=== PATIENT | male | born 1940 | race Caucasian/White ===

== ENCOUNTER → 2017-06-23 | Outpatient (REF) | payer MEDICARE ==
[2017-06-23 13:10] LABS: BASO # 0.1 10^3/uL (0.0-0.2); BASO % 0.8 % (0.0-1.0); EOS # 0.1 10^3/uL (0.0-0.50); EOS % 1.1 % (0.0-3.0); HEMATOCRIT 49.3 % (42.0-52.0); HEMOGLOBIN 17.5 g/dl (13.5-17.5); IMMATURE GRANULOCYTE % 0.1 % (0-3.0); LYMPH # 2.7 10^3/uL (1.5-4.5); LYMPH % 38.5 % (24.0-44.0); MEAN CORPUSCULAR HEMOGLOBIN 32.6 pg (27.0-33.0); MEAN CORPUSCULAR HGB CONC 35.5 g/dl (32.0-36.5); MEAN CORPUSCULAR VOLUME 91.8 fl (80.0-96.0); MONO # 0.8 10^3/uL (0.0-0.8); MONO % 11.5 % (0.0-5.0); NEUTROPHILS # 3.4 10^3/uL (1.8-7.7); PLATELET COUNT, AUTOMATED 245 10^3/uL (150-450); RED BLOOD COUNT 5.37 10^6/uL (4.30-6.10); RED CELL DISTRIBUTION WIDTH 12.1 % (11.5-14.5); WHITE BLOOD COUNT 7.1 10^3/uL (4.0-10.0)
[2017-06-23 13:40] LABS: TOTAL 25(OH) VITAMIN D 22.6 NG/ML (30.0-100.0); VITAMIN B12 LEVEL 350 PG/ML
[2017-06-23 13:41] LABS: FOLATE 17.9 NG/ML
[2017-06-23 13:59] LABS: ALBUMIN 4.1 GM/DL (3.2-5.2); ALBUMIN/GLOBULIN RATIO 1.24 (1.00-1.93); ALKALINE PHOSPHATASE 107 U/L (45-117); ALT/SGPT 104 U/L (12-78); ANION GAP 8 MEQ/L (8-16); AST/SGOT 80 U/L (7-37); BILIRUBIN,TOTAL 0.6 MG/DL (0.2-1.0); BLOOD UREA NITROGEN 17 MG/DL (7-18); CARBON DIOXIDE LEVEL 26 MEQ/L (21-32); CHLORIDE LEVEL 105 MEQ/L (98-107); CREATININE FOR GFR 0.85 MG/DL (0.70-1.30); FREE T4 0.71 NG/DL (0.76-1.46); GLOMERULAR FILTRATION RATE > 60.0 (>42); GLUCOSE, FASTING 166 MG/DL (70-100); POTASSIUM SERUM 3.8 MEQ/L (3.5-5.1); SODIUM LEVEL 139 MEQ/L (136-145); TOTAL PROTEIN 7.4 GM/DL (6.4-8.2)
[2017-06-25 14:16] LABS: OXCARBAZEPINE 22 ug/mL (10-35)
== END ==
LOC: M LABNEURO 10:49
DX: G40.209 Localization-related (focal) (partial) symptomatic epilepsy and epileptic syndromes with complex partial seizures, not intractable, without status epilepticus (principal); D33.0 Benign neoplasm of brain, supratentorial; Z79.899 Other long term (current) drug therapy
CPT/HCPCS: 82746

== ENCOUNTER → 2017-08-03 | Outpatient (REF) | payer MEDICARE ==
[2017-08-03 18:36] LABS: AMORPHOUS SEDIMENT LARGE (NEGATIVE); APPEARANCE, URINE TURBID (CLEAR); BACTERIA, URINE AUTO NEGATIVE (NEGATIVE); BILIRUBIN, URINE AUTO NEGATIVE (NEGATIVE); BLOOD, URINE BLOOD NEGATIVE (NEGATIVE); COLOR, URINE YELLOW (YELLOW); GLUCOSE, URINE (UA) AUTO 1+ mg/dL (NEGATIVE); KETONE, URINE AUTO NEGATIVE (NEGATIVE); LEUKOCYTE ESTERASE, URINE AUTO 1+ (NEGATIVE); MUCUS, URINE SMALL (NEGATIVE); NITRITE, URINE AUTO NEGATIVE (NEGATIVE); PROTEIN, URINE AUTO NEGATIVE (NEGATIVE); RBC, URINE AUTO 0 /HPF (0-3); SPECIFIC GRAVITY URINE AUTO 1.027 (1.002-1.035); SQUAMOUS EPITHELIAL CELL UR AU 0 /HPF (0-6); UROBILINOGEN, URINE AUTO 0.2 mg/dL (0.0-2.0); WBC, URINE AUTO 0 /HPF (0-3)
== END ==
LOC: M SMT 16:57
DX: R97.20 Elevated prostate specific antigen [PSA] (principal); R39.15 Urgency of urination; R39.12 Poor urinary stream
CPT/HCPCS: 81001

== ENCOUNTER → 2017-08-20 | Outpatient (CLI) | payer MEDICARE | LOC: M SMT PRO 08:15 | DX: C61 Malignant neoplasm of prostate (principal) | CPT/HCPCS: G0416 ==

== ENCOUNTER → 2018-10-11 | Outpatient (CLI) | payer MEDICARE, OTHER ==
[~2018-10-11] MED LIST: BACT800T5 PO; DOCU100C16 PO; DONETAB6 PO; FLOM0.4C39 PO; LOVA20TA2 PO; METF500T13 PO; MULTCAP PO; NEUR100C PO; OMEP10CASR PO; OXCA300T14 PO; PERCOCET PO; SULF500T2 PO
--- NOTE | 2018-10-11 12:47 | REP ---
TRANSRECTAL PROSTATE ULTRASOUND WITH ULTRASOUND GUIDANCE FOR PROSTATE BIOPSY: Transrectal ultrasound of the prostate is performed. Prostate measures 3.4 x 4.8 x 2.7 cm for a total volume of 23.0 mL. Ultrasound guidance was provided for Dr. Scherer who performed ultrasound guided biopsy of the prostate. Electronically Signed by Michi Green MD 10/11/2018 04:49 P
== END ==
LOC: M SMT PRO 09:47 → MERGE 09:47
PROVIDERS: ATTEND Urology
DX: C61 Malignant neoplasm of prostate (principal)
CPT/HCPCS: 76942; G0416

== ENCOUNTER 2018-11-29 10:49 | Inpatient (IN) | payer MEDICARE ==
[~2018-11-29] VITALS: Ht 170.2 cm; Wt 88.0 kg
[2018-11-29] MEDS: NS 1,000 ML IV SCH ×2 (01:30→17:50)
[~2018-11-29 10:49] MED LIST changes: -BACT800T5 PO; +BUPIVACAINE HCL 0.25% 30 ML VIAL As Ordered ONE; -DOCU100C16 PO; +LIDOCAINE 1% SDV INJ 30 ML VIAL As Ordered ONE; +LR 1,000 ML IV ONE; -PERCOCET PO; +ceFAZolin SOD 2 GM in IV 1 EA IV ONE
[2018-11-29] MEDS ORDERED: HEPARIN SOD (PORCINE) 5000 UNITS/ML VIAL SQ ONE (11:45)
[2018-11-29] MEDS ORDERED: DEXTROSE 50% 50 ML SYRINGE IV PRN (12:30)
[2018-11-29] MEDS ORDERED: MORPHINE 4 MG/ML 1ML VIAL/SYRINGE (J2270) IV PRN (12:30)
[2018-11-29] MEDS ORDERED: GLUCAGON FOR INJ 1 MG VIAL (J1610) SC PRN (12:30)
[2018-11-29] MEDS ORDERED: GLUCOSE 4 GM CHEW TABLET PO PRN (12:30)
[2018-11-29] MEDS ORDERED: ONDANSETRON 4MG/2ML VIAL (J2405) IV PRN ×2 (12:30→17:45)
[2018-11-29] MEDS ORDERED: ACETAMINOPHEN TAB 650MG DOSE (2X325MG) PO PRN (12:30)
[2018-11-29] MEDS ORDERED: PERCOCET 5MG/325MG TAB PO PRN ×2 (12:30→17:45)
[2018-11-29] MEDS ORDERED: PROPOFOL 200 MG/20 ML VIAL As Ordered ONE (12:44)
[2018-11-29] MEDS ORDERED: ePHEDrine SULFATE 25 MG/5 ML(5MG/ML) SYRINGE As Ordered ONE (12:44)
[2018-11-29] MEDS ORDERED: ROCURONIUM BROMIDE 50 MG/5 ML VIAL As Ordered ONE ×2 (12:44→15:59)
[2018-11-29] MEDS ORDERED: SUGAMMADEX SODIUM 500 MG/5 ML VIAL (BRIDION) As Ordered ONE (12:44)
[2018-11-29] MEDS ORDERED: LIDOCAINE 2% INJ 100 MG/5 ML SDV (FOR ANES.) As Ordered ONE (12:44)
[2018-11-29] MEDS ORDERED: METOCLOPRAMIDE INJ 10MG/2ML VIAL (J2765) As Ordered ONE (12:44)
[2018-11-29] MEDS ORDERED: dexameTHASONE 4 MG/ML 1ML VIAL (J1100) As Ordered ONE (12:44)
[2018-11-29] MEDS ORDERED: ONDANSETRON 4MG/2ML VIAL (J2405) As Ordered ONE (12:44)
[2018-11-29] MEDS ORDERED: fentaNYL 250 MCG/5 ML INJECTION (J3010) As Ordered ONE (12:44)
[2018-11-29] MEDS ORDERED: HYDROmorphone HCL 2 MG/ML 1ML VIAL (J1170) As Ordered ONE (12:44)
[2018-11-29] MEDS ORDERED: MIDAZOLAM INJ 2 MG/2 ML VIAL (J2250) As Ordered ONE (12:44)
[2018-11-29] MEDS ORDERED: LABETALOL HCL 100 MG/20 ML VIAL As Ordered ONE (12:54)
[2018-11-29] MEDS ORDERED: ACETAMINOPHEN 1000MG 100ML IV BTL (OFIRMEV) (J0131 PER 10MG) As Ordered ONE (12:56)
[2018-11-29] MEDS ORDERED: PHENYLephrine HCL 500 MCG/5 ML (100MCG/ML) SYRINGE (J2370) As Ordered ONE (15:15)
[2018-11-29] MEDS ORDERED: DESFLURANE 240 ML INHALANT As Ordered ONE ×2 (15:33→16:18)
[2018-11-29] MEDS: HumaLOG INSULIN (NovoLOG) PER UNIT SC SCH ×2 (17:30→21:00)
[2018-11-29 17:35] LABS: HEMATOCRIT 50.5 % (42.0-52.0); HEMOGLOBIN 17.3 g/dl (13.5-17.5); MEAN CORPUSCULAR HEMOGLOBIN 32.6 pg (27.0-33.0); MEAN CORPUSCULAR HGB CONC 34.3 g/dl (32.0-36.5); MEAN CORPUSCULAR VOLUME 95.3 fl (80.0-96.0); PLATELET COUNT, AUTOMATED 232 10^3/uL (150-450); WHITE BLOOD COUNT 11.7 10^3/uL (4.0-10.0)
--- NOTE | 2018-11-29 17:36 | ROOPDOC ---
[facility] Report Of Operation Report of Operation DATE OF PROCEDURE: 11/29/18 PREPROCEDURE DIAGNOSES: Prostate Cancer. POSTPROCEDURE DIAGNOSES: Prostate Cancer. PROCEDURE: Robotic-assisted Laparoscopic Radical Prostatectomy with Bilateral Pelvic Lymph Node Dissection. SURGEON: Gamaliel Erwin MD PARACHUTE MENDER: Brenda Lopez NP ANESTHESIA: General. OPERATIVE INDICATIONS: This is a 78 year old male with clinical T1c Colin 3+4 prostate cancer, here today for treatment. DESCRIPTION OF PROCEDURE: The patient was brought to the operating room and general anesthesia was induced. Prophylactic antibiotics were infused. He was then placed in the supine position and prepped and draped in the usual sterile fashion. At this point, a Caal catheter was inserted into the bladder and the balloon was filled with 10 mL of sterile water. We then made a midline incision just above the umbilicus for an 8 mm port. A Veress needle was utilized to achieve pneumoperitoneum. Next, an 8 mm port was inserted into the incision and subsequently a camera was inserted. There were no injuries from the Veress needle or initial trocar placement. Then three robotic ports were placed in the usual configuration in line just below the level of the umbilicus. A 12 mm human services assistant port was inserted lateral to the camera port. Once all the ports were placed, the robot was docked. Additional lysis of adhesions between the sigmoid colon and abdominal wall was then performed. The bladder was then released from the anterior abdominal wall using electrocautery. When the bladder was dropped the reservoir for the patient's previously placed inflatable penile prosthesis was seen on the right anterior abdominal wall. During the procedure, we made sure not to cauterize on or puncture the reservoir. Once the bladder was dropped, the fat overlying the prostate was cleared using electrocautery. The superficial dorsal vein was controlled with electrocautery. The endopelvic fascia was opened on both sides and the dorsal venous complex was cleared. Next, a #0 Vicryl [id number] stitch was placed around the dorsal venous complex. Once that was done, the bladder was opened and dissected away from the prostate. At this point, the prostate was lifted up. The vasa deferentia were identified in the midline. They were controlled with electrocautery and then transected. The seminal vesicles were also dissected bilaterally. At this point I ligated and transected bilateral prostatic pedicles using the Harmonic scalpel. The pedicles were carried towards the apex. After taking care of the pedicles the dorsal venous complex was transected with electrocautery. The urethra was transected. The prostate was then mobilized off the rectum using cold scissors. At this point, we checked for hemostasis and it appeared very good. Next, we performed bilateral pelvic lymph node dissection. This was done in a standard fashion. The limits of dissection were the iliac vein proximally, the obturator nerve distally, the pelvic sidewall laterally, and the bladder medially. All lymphatic tissue within these limits was removed. I performed the same procedure on both the right and left sides. Hemostasis was then obtained with a combination of bipolar electrocautery and Weck clips. The lymphatic packets were then placed in separate Endo Catch bags for future retrieval. Once hemostasis was confirmed, I then moved on to perform the vesicourethral anastomosis. The vesicourethral anastomosis was performed in running fashion using a Quill stitch. Once this was done, the final #20-Brazilian Caal catheter was placed. The balloon was filled with 15 mL of sterile water. Upon completion of the vesicourethral anastomosis, it was tested by filling the bladder with sterile water. The anastomosis appeared to be watertight. At this point, the prostate and seminal vesicles were placed in an Endo Catch bag for future retrieval. A Vince-Gramajo drain was brought in through the left robotic port skin site and the drain was positioned anterior to the bladder. The robot was then undocked. A Albino-Jordan fascial closure device was utilized to place a #0 Vicryl suture through the fascia of the 12 mm human services assistant port. The drain was secured to the skin with #2-0 Ethilon suture. The prostate, as well as the lymphatic packets were then extracted from the camera port site after the skin was extended. The fascia in this incision was then closed with a running #0 Vicryl stitch. Next, all the remaining ports were removed and there did not appear to be any bleeding from any of the port sites. The previously placed #0 Vicryl free ties through the human services assistant port were then tied down and all incisions were irrigated. Last, all of the incisions were closed with running subcuticular #4-0 Monocryl sutures. Local anesthesia was applied. Dermabond was then applied to the incisions. This marked the conclusion of the procedure. The patient was then awakened from anesthesia and transported to the recovery room in stable condition. ESTIMATED BLOOD LOSS: 175 mL. COMPLICATIONS: None. SPECIMENS: Prostate and seminal vesicles, right pelvic lymph nodes, left pelvic lymph nodes. PLAN: The patient will be admitted to the hospital postoperatively, and he will likely be discharged home within the next 1-2 days. GAMALIEL ERWIN MD Nov 29, 2018 17:36
[2018-11-29] MEDS ORDERED: LR 1,000 ML IV SCH (17:45)
[2018-11-29] MEDS: fentaNYL 100 MCG/2 ML INJECTION (J3010) IV PRN ×4 (17:57→18:18)
[2018-11-29 18:01] LABS: BLOOD UREA NITROGEN 12 MG/DL (7-18); CALCIUM LEVEL 8.3 MG/DL (8.8-10.2); CARBON DIOXIDE LEVEL 28 MEQ/L (21-32); CHLORIDE LEVEL 104 MEQ/L (98-107); CREATININE FOR GFR 1.18 MG/DL (0.70-1.30); GLOMERULAR FILTRATION RATE > 60.0 (>42); GLUCOSE, FASTING 184 MG/DL (70-100); POTASSIUM SERUM 4.1 MEQ/L (3.5-5.1); SODIUM LEVEL 139 MEQ/L (136-145)
[2018-11-29] MEDS: DONEPEZIL 5 MG TAB PO SCH (18:53)
[2018-11-29 18:54] VITALS: BP 144/88
[2018-11-29 19:35] VITALS: BP 141/88
[2018-11-29 20:30] VITALS: BP 124/79
[2018-11-29] MEDS: ceFAZolin SOD 1 GM in D5W MINI-BAG PLUS 50 ML IV SCH (20:39)
[2018-11-29] MEDS: sulfaSALAzine 500 MG TABEC PO SCH (20:40)
[2018-11-29] MEDS: OXcarbazepine 300 MG TAB PO SCH (20:40)
[2018-11-29] MEDS: DOCUSATE SODIUM 100 MG CAP PO SCH (20:40)
[2018-11-29] MEDS: HEPARIN SOD (PORCINE) 5000 UNITS/ML VIAL SC SCH (20:41)
[2018-11-29 21:35] VITALS: BP 128/80
[2018-11-29 22:30] VITALS: BP 126/78
[2018-11-29 23:20] VITALS: BP 122/70
[2018-11-30 00:30] VITALS: BP 144/74
[2018-11-30] MEDS: NS 1,000 ML IV SCH (03:54)
[2018-11-30] MEDS: ceFAZolin SOD 1 GM in D5W MINI-BAG PLUS 50 ML IV SCH (03:54)
[2018-11-30] MEDS: HEPARIN SOD (PORCINE) 5000 UNITS/ML VIAL SC SCH ×3 (05:32→20:59)
[2018-11-30 06:00] VITALS: BP 145/83
[2018-11-30 06:17] LABS: HEMATOCRIT 45.7 % (42.0-52.0); HEMOGLOBIN 15.5 g/dl (13.5-17.5); MEAN CORPUSCULAR HEMOGLOBIN 32.6 pg (27.0-33.0); MEAN CORPUSCULAR HGB CONC 33.9 g/dl (32.0-36.5); PLATELET COUNT, AUTOMATED 216 10^3/uL (150-450); RED BLOOD COUNT 4.76 10^6/uL (4.30-6.10); WHITE BLOOD COUNT 9.3 10^3/uL (4.0-10.0)
[2018-11-30 06:41] LABS: BLOOD UREA NITROGEN 10 MG/DL (7-18); CALCIUM LEVEL 8.2 MG/DL (8.8-10.2); CARBON DIOXIDE LEVEL 32 MEQ/L (21-32); CHLORIDE LEVEL 104 MEQ/L (98-107); CREATININE FOR GFR 0.93 MG/DL (0.70-1.30); GLOMERULAR FILTRATION RATE > 60.0 (>42); GLUCOSE, FASTING 118 MG/DL (70-100); POTASSIUM SERUM 4.6 MEQ/L (3.5-5.1); SODIUM LEVEL 139 MEQ/L (136-145)
[2018-11-30] MEDS: HumaLOG INSULIN (NovoLOG) PER UNIT SC SCH ×4 (08:05→21:00)
[2018-11-30] MEDS: DONEPEZIL 5 MG TAB PO SCH (08:06)
[2018-11-30] MEDS: sulfaSALAzine 500 MG TABEC PO SCH ×2 (08:06→20:59)
[2018-11-30] MEDS: GABAPENTIN 100 MG CAP PO SCH (08:07)
[2018-11-30] MEDS: DOCUSATE SODIUM 100 MG CAP PO SCH ×2 (08:07→20:59)
[2018-11-30] MEDS: OXcarbazepine 300 MG TAB PO SCH ×2 (08:07→20:59)
[2018-11-30] MEDS: OMEPRAZOLE 20 MG CAP PO SCH (08:07)
--- NOTE | 2018-11-30 09:02 | IPNPDOC ---
Subjective Review oF Systems Chief Complaint The patient is a 78-year-old male admitted with a reason for visit of Prostate Cancer. Events since Last Encounter No acute events o/n. Good pain control. No n/v. No f/c/ns. Objective Physical Examination General Exam: Alert, Cooperative ABDOMEN EXAM: Soft, Tenderness (mild), Other (incisions clean/dry/intact; TEN w/ serosanguinous output) Skin Exam: Nl turgor and temperature Neuro Exam: Normal Speech Psych Exam: Mental status NL, Mood NL Other physical findings catheter draining light pink urine Vital Signs/I&O Vital Signs Date Time Temp Pulse Resp B/P (MAP) Pulse Ox O2 Delivery O2 Flow Rate FiO2 11/30/18 06:00 97.2 72 20 145/83 (103) 96 Nasal Cannula 2.0 I&O- Last 24 Hours up to 6 AM 11/30/18 05:59 Intake Total 3755 ml Output Total 1070 ml Balance 2685 ml Laboratory Data Labs 24H Laboratory Tests 2 11/29/18 11:31: Bedside Glucose (Misc Panel) 126H 11/29/18 17:21: Nucleated Red Blood Cells % (auto) 0.0, Anion Gap 7L, Glomerular Filtration Rate > 60.0, Calcium Level 8.3L 11/29/18 20:49: Bedside Glucose (Misc Panel) 198H 11/30/18 05:27: Nucleated Red Blood Cells % (auto) 0.0, Anion Gap 3L, Glomerular Filtration Rate > 60.0, Calcium Level 8.2L CBC/BMP Laboratory Tests 11/29/18 17:21 11/30/18 05:27 FSBS Laboratory Tests Test 11/29/18 11:31 11/29/18 20:49 Range/Units Bedside Glucose (Misc Panel) 126 198 83-110 MG/DL Assessment/Plan Date Seen The patient was seen on 11/30/18. Patient Summary This is a 78 y/o M POD1 s/p RALP w/ BPLND. Hb stable. Good UOP, but still positive about 3L. Minimal TEN output. Plan/VTE VTE Prophylaxis Ordered?: Yes VTE Exclusion Mechanical Proph: N/A:VTE Prophy Ordered VTE Exclusion Pharmacological: N/A:VTE Prophy Ordered Plan/Urinary Catheter Urinary Catheter: Other Catheter: (catheter will need to stay in for at least 7 days for healing of vesicourethral anastomosis) Plan - d/c IVF - keep catheter to gravity drainage - strict I/Os - percocet prn pain - SCDs when in bed - SQH - incentive spirometry - ambulate - CLD -> advance diet as tolerated - likely discharge home later today w/ catheter (will remove TEN drain prior to discharge) GAMALIEL ERWIN MD Nov 30, 2018 09:02
[2018-11-30 10:00] VITALS: BP 141/87
[2018-11-30] MEDS ORDERED: FUROSEMIDE 20 MG/2 ML VIAL (J1940) IV ONE (10:00)
[2018-11-30 14:00] VITALS: BP 116/70
[2018-11-30] MEDS: PERCOCET 5MG/325MG TAB PO PRN (17:15)
[2018-11-30 18:00] VITALS: BP 118/71
[2018-11-30] MEDS ORDERED: CIPROFLOXACIN 500 MG TAB PO SCH (18:00)
[2018-11-30 22:00] VITALS: BP 131/74
[2018-12-01] MEDS: PERCOCET 5MG/325MG TAB PO PRN ×3 (01:58→13:44)
[2018-12-01 02:00] VITALS: BP 142/82
[2018-12-01 06:00] VITALS: BP 145/83
[2018-12-01] MEDS: HEPARIN SOD (PORCINE) 5000 UNITS/ML VIAL SC SCH (06:05)
[2018-12-01 06:33] LABS: HEMATOCRIT 41.7 % (42.0-52.0); HEMOGLOBIN 14.5 g/dl (13.5-17.5); MEAN CORPUSCULAR HEMOGLOBIN 32.8 pg (27.0-33.0); MEAN CORPUSCULAR HGB CONC 34.8 g/dl (32.0-36.5); MEAN CORPUSCULAR VOLUME 94.3 fl (80.0-96.0); PLATELET COUNT, AUTOMATED 175 10^3/uL (150-450); RED BLOOD COUNT 4.42 10^6/uL (4.30-6.10); WHITE BLOOD COUNT 8.4 10^3/uL (4.0-10.0)
[2018-12-01 07:03] LABS: BLOOD UREA NITROGEN 11 MG/DL (7-18); CALCIUM LEVEL 8.4 MG/DL (8.8-10.2); CARBON DIOXIDE LEVEL 28 MEQ/L (21-32); CHLORIDE LEVEL 105 MEQ/L (98-107); CREATININE FOR GFR 0.81 MG/DL (0.70-1.30); GLOMERULAR FILTRATION RATE > 60.0 (>42); GLUCOSE, FASTING 136 MG/DL (70-100); POTASSIUM SERUM 3.5 MEQ/L (3.5-5.1); SODIUM LEVEL 140 MEQ/L (136-145)
[2018-12-01] MEDS: HumaLOG INSULIN (NovoLOG) PER UNIT SC SCH ×2 (07:43→11:48)
--- NOTE | 2018-12-01 07:47 | IPNPDOC ---
Subjective Review oF Systems Chief Complaint The patient is a 78-year-old male admitted with a reason for visit of Prostate Cancer. Events since Last Encounter No acute events o/n. Patient had a fever to 101 yesterday early evening. This has come down and is normal this morning. Patient notes good pain control. No n/v. No SOB or chest pain. Tolerating diet. Objective Physical Examination General Exam: Alert, Cooperative ABDOMEN EXAM: Soft, Tenderness (mild), Other (incisions clean/dry/intact; TEN w/ serous output) Skin Exam: Nl turgor and temperature Neuro Exam: Normal Speech Psych Exam: Mental status NL, Mood NL Other physical findings catheter draining shannon colored urine Vital Signs/I&O Vital Signs Date Time Temp Pulse Resp B/P (MAP) Pulse Ox O2 Delivery O2 Flow Rate FiO2 12/01/18 06:00 97.5 73 17 145/83 (103) 91 Room Air 11/30/18 10:00 2.0 I&O- Last 24 Hours up to 6 AM 12/01/18 06:00 Intake Total 1150 ml Output Total 2585 ml Balance -1435 ml Laboratory Data Labs 24H Laboratory Tests 2 11/30/18 11:29: Bedside Glucose (Misc Panel) 178H 11/30/18 17:00: Bedside Glucose (Misc Panel) 152H 11/30/18 20:47: Bedside Glucose (Misc Panel) 183H 12/01/18 05:58: Nucleated Red Blood Cells % (auto) 0.0, Anion Gap 7L, Glomerular Filtration Rate > 60.0, Calcium Level 8.4L CBC/BMP Laboratory Tests 12/01/18 05:58 FSBS Laboratory Tests Test 11/30/18 11:29 11/30/18 17:00 11/30/18 20:47 Range/Units Bedside Glucose (Misc Panel) 178 152 183 83-110 MG/DL Assessment/Plan Date Seen The patient was seen on 12/01/18. Patient Summary This is a 78 y/o M POD2 s/p RALP w/ BPLND. He is doing well this am. Labs w/i normal limits. Good UOP. TEN output was high yesterday. Plan/VTE VTE Prophylaxis Ordered?: Yes VTE Exclusion Mechanical Proph: N/A:VTE Prophy Ordered VTE Exclusion Pharmacological: N/A:VTE Prophy Ordered Plan/Urinary Catheter Urinary Catheter: Other Catheter: (catheter will need to stay in for at least 7 days for healing of vesicourethral anastomosis) Plan - send TEN fluid for Cr - percocet prn pain - strict I/Os - SCDs in bed - SQH - incentive spirometry - regular diet - likely discharge home today w/ catheter (will remove TEN drain if TEN Cr is normal) GAMALIEL ERWIN MD Dec 01, 2018 07:47
[2018-12-01] MEDS: DONEPEZIL 5 MG TAB PO SCH (08:13)
[2018-12-01] MEDS: sulfaSALAzine 500 MG TABEC PO SCH (08:13)
[2018-12-01] MEDS: DOCUSATE SODIUM 100 MG CAP PO SCH (08:13)
[2018-12-01] MEDS: OMEPRAZOLE 20 MG CAP PO SCH (08:13)
[2018-12-01] MEDS: GABAPENTIN 100 MG CAP PO SCH (08:13)
[2018-12-01] MEDS: OXcarbazepine 300 MG TAB PO SCH (08:13)
[2018-12-01 08:47] LABS: CREATININE BF 0.8 MG/DL (NOT ESTABLISHED); SOURCE, BODY FLUID CREATININE PERITONEAL
[2018-12-01] MEDS ORDERED: BACT800T5 PO (10:11)
[2018-12-01] MEDS ORDERED: PERCOCET PO (10:11)
[2018-12-01] MEDS ORDERED: DOCU100C16 PO (10:11)
--- NOTE | 2018-12-01 15:34 | DSES ---
DATE OF ADMISSION: 11/29/2018 DATE OF DISCHARGE: 12/01/2018 ADMISSION DIAGNOSIS: Prostate cancer. DISCHARGE DIAGNOSIS: Prostate cancer. ADMITTING PHYSICIAN: Maxim Scherer MD DISCHARGING PHYSICIAN: Maxim Scherer MD PROCEDURES PERFORMED: Robotic assisted laparoscopic radical prostatectomy, bilateral pelvic lymph node dissection on 11/29/2018. HISTORY OF PRESENT ILLNESS: This is a 78-year-old male who underwent the above listed surgery for treatment of prostate cancer. He was admitted to the hospital postoperatively. HOSPITAL COURSE: The patient was admitted to the hospital and underwent the above listed procedure. His postoperative course for the most part was unremarkable. Throughout his hospital stay, all of his lab work was within normal limits. On postoperative day 1, he had a moderate amount of abdominal pain with ambulation and we also had difficulty weaning him off of oxygen. He therefore was not deemed ready for discharge home on postoperative day 1. On postoperative day 2, his pain was much better controlled, and he was weaned off of supplemental oxygen to room air. His catheter drained a good amount of urine. His Vince-Gramajo drain did have a moderate amount of output over postoperative day 1. I therefore sent fluid for creatinine value and it came back consistent with serum creatinine. We therefore removed the Vince-Gramajo drain on postoperative day 2. He was ambulating well and was tolerating a regular diet. Since he was doing well on postoperative day 2, he was deemed ready for discharge home. He was discharged home with his catheter in place with a plan for him to followup in the clinic in about 1 week for catheter removal and to discuss his pathology results. JOAN
== END 2018-12-01 13:49 | disposition home or self-care (01) | DRG 708 ==
LOC: M OR 10:49 → M MSPAV 18:31
PROVIDERS: ADMIT Urology; ATTEND Urology
PROC: 07BC4ZX Excision of Pelvis Lymphatic, Percutaneous Endoscopic Approach, Diagnostic (ICD-10-PCS; 2018-11-29)
PROC: 8E0W4CZ Robotic Assisted Procedure of Trunk Region, Percutaneous Endoscopic Approach (ICD-10-PCS; 2018-11-29)
PROC: 0VT04ZZ Resection of Prostate, Percutaneous Endoscopic Approach (ICD-10-PCS; principal; 2018-11-29 13:00)
DX: C61 Malignant neoplasm of prostate (principal); E11.9 Type 2 diabetes mellitus without complications; M19.90 Unspecified osteoarthritis, unspecified site

== ENCOUNTER → 2019-01-02 | Outpatient (REF) | payer MEDICARE ==
[~2019-01-02] MED LIST changes: +BACT800T5 PO; -BUPIVACAINE HCL 0.25% 30 ML VIAL As Ordered ONE; +DOCU100C16 PO; -LIDOCAINE 1% SDV INJ 30 ML VIAL As Ordered ONE; -LR 1,000 ML IV ONE; +PERCOCET PO; -ceFAZolin SOD 2 GM in IV 1 EA IV ONE
== END ==
LOC: M SMT 12:51
PROVIDERS: ATTEND Urology
DX: C61 Malignant neoplasm of prostate (principal)

== ENCOUNTER 2022-12-09 16:23 | Inpatient (IN) | payer MEDICARE ==
[~2022-12-09] VITALS: Ht 170.2 cm; Wt 90.8 kg
[2022-12-09] MEDS: ATORVASTATIN 20 MG TAB PO SCH (00:55)
[~2022-12-09 16:23] MED LIST changes: +DONE-1 PO; -DONETAB6 PO
[2022-12-09] MEDS ORDERED: LEVO25TA5 (16:54)
[2022-12-09] MEDS ORDERED: LANC-66 (16:54)
[2022-12-09] MEDS ORDERED: LISI2.5T9 (16:54)
[2022-12-09] MEDS ORDERED: LOVA40TA (16:54)
[2022-12-09] MEDS ORDERED: GABA-282 (16:54)
[2022-12-09] MEDS ORDERED: OMEP-173 (16:54)
[2022-12-09 20:29] LABS: BASO # 0.1 10^3/uL (0.0-0.2); BASO % 0.9 % (0.0-1.0); EOS # 0.1 10^3/uL (0.0-0.5); EOS % 2.2 % (0.0-3.0); HEMATOCRIT 47.3 % (42.0-52.0); HEMOGLOBIN 16.4 g/dl (13.5-17.5); LYMPH # 2.7 10^3/uL (1.5-5.0); LYMPH % 42.3 % (24.0-44.0); MEAN CORPUSCULAR HEMOGLOBIN 31.7 pg (27.0-33.0); MEAN CORPUSCULAR HGB CONC 34.7 g/dl (32.0-36.5); MEAN CORPUSCULAR VOLUME 91.3 fl (80.0-96.0); MONO # 0.7 10^3/uL (0.0-0.8); MONO % 10.1 % (2.0-8.0); NEUTROPHILS # 2.8 10^3/uL (1.5-8.5); NEUTROPHILS % 44.3 % (36.0-66.0); PLATELET COUNT, AUTOMATED 252 10^3/uL (150-450); RED BLOOD COUNT 5.18 10^6/uL (4.30-6.10); WHITE BLOOD COUNT 6.4 10^3/uL (4.0-10.0)
[2022-12-09 20:41] LABS: INR 1.02; PROTHROMBIN TIME 13.1 SECONDS (12.5-14.5)
[2022-12-09 20:42] LABS: PARTIAL THROMBOPLASTIN TIME 31.6 SECONDS (24.8-34.2)
[2022-12-09 20:51] LABS: CK-MB VALUE MASS 1.4 NG/ML (<3.6)
[2022-12-09 20:56] LABS: FREE T4 0.86 NG/DL (0.89-1.76); THYROID STIMULATING HORMONE 3.465 uIU/ML (0.55-4.78)
[2022-12-09 21:00] LABS: MB/CK RELATIVE INDEX 1.34 (< OR =4)
[2022-12-09] MEDS ORDERED: PROHANCE 279.3MG/ML 5ML VIAL As Ordered ONE (21:55)
[2022-12-09] MEDS ORDERED: PROHANCE 279.3MG/ML 15ML VIAL As Ordered ONE (21:56)
[2022-12-09 22:42] LABS: RSV AMPLIFICATION NEGATIVE (NEGATIVE)
[2022-12-09] MEDS ORDERED: ASPIRIN 325 MG TAB PO ONE (23:05)
[2022-12-09] MEDS ORDERED: ISOVUE-370 76% 100ML VIAL As Ordered ONE (23:12)
[2022-12-09] MEDS ORDERED: LABETALOL 100MG/20ML VIAL IV PRN (23:15)
[2022-12-10] VITALS (12 sets, daily range): BP systolic 140–185; BP diastolic 67–106; TEMP 97.1–97.7; O2SAT 94–99
[2022-12-10] MEDS ORDERED: MOM 30ML SUSPENSION UDC PO PRN (00:15)
[2022-12-10] MEDS ORDERED: GLUCOSE 4GM CHEW TABLET PO PRN ×2 (00:15→07:55)
[2022-12-10] MEDS ORDERED: DEXTROSE 50% 50ML SYRINGE IV PRN ×2 (00:15→07:55)
[2022-12-10] MEDS ORDERED: D5W/0.45% SODIUM CHLORIDE 1,000 ML IV SCH (00:15)
[2022-12-10] MEDS ORDERED: GLUCAGON INJ 1MG VIAL SC PRN ×2 (00:15→07:55)
[2022-12-10] MEDS ORDERED: LISI2.5T9 PO (00:36)
[2022-12-10] MEDS ORDERED: LOVA40TA PO (00:36)
[2022-12-10] MEDS ORDERED: VITMTA PO (00:36)
[2022-12-10] MEDS ORDERED: SYNT25TA PO (00:36)
[2022-12-10] MEDS ORDERED: OMEP1CAP73 PO (00:36)
[2022-12-10] MEDS ORDERED: GABA-282 PO (00:36)
[2022-12-10] MEDS ORDERED: HOME MED LIST COMPLETE! XX SCH ×2 (00:40)
[2022-12-10] MEDS ORDERED: LABETALOL 100MG/20ML VIAL IV PRN (01:00)
[2022-12-10] MEDS: LEVOTHYROXINE 25MCG TABLET (0.025MG) PO SCH (05:01)
[2022-12-10] MEDS ORDERED: INSULIN LISPRO (NovoLOG) PER UNIT SC SCH (06:00)
[2022-12-10 06:21] LABS: HEMATOCRIT 44.5 % (42.0-52.0); HEMOGLOBIN 15.1 g/dl (13.5-17.5); MEAN CORPUSCULAR HEMOGLOBIN 31.1 pg (27.0-33.0); MEAN CORPUSCULAR HGB CONC 33.9 g/dl (32.0-36.5); MEAN CORPUSCULAR VOLUME 91.8 fl (80.0-96.0); PLATELET COUNT, AUTOMATED 215 10^3/uL (150-450); RED BLOOD COUNT 4.85 10^6/uL (4.30-6.10); WHITE BLOOD COUNT 5.5 10^3/uL (4.0-10.0)
[2022-12-10 06:45] LABS: HEMOGLOBIN A1c 5.4 % (4.0-6.0)
[2022-12-10 07:08] LABS: ALBUMIN 3.5 G/DL (3.2-5.2); ALKALINE PHOSPHATASE 72 U/L (46-116); ALT/SGPT 45 U/L (7.0-40); AST/SGOT 31 U/L (<34); BILIRUBIN,TOTAL 0.4 MG/DL (0.3-1.2); BLOOD UREA NITROGEN 11 MG/DL (9-23); CARBON DIOXIDE LEVEL 27 MMOL/L (20-31); CHLORIDE LEVEL 101 MMOL/L (98-107); CHOLESTEROL LEVEL 178 MG/DL (<200); CHOLESTEROL RISK RATIO 6.22 (<5); CREATININE FOR GFR 0.73 MG/DL (0.70-1.30); GLOMERULAR FILTRATION RATE > 60.0 (>35); GLUCOSE, FASTING 214 MG/DL (74-106); HDL CHOLESTEROL 28.6 MG/DL (>40); NON-HDL-C 149.4 MG/DL; POTASSIUM SERUM 3.8 MMOL/L (3.5-5.1); SODIUM LEVEL 138 MMOL/L (136-145); TRIGLYCERIDES LEVEL 192 MG/DL (<150)
[2022-12-10] MEDS ORDERED: NS 1,000 ML IV ONE (07:30)
[2022-12-10] MEDS: DOCUSATE SODIUM 100MG CAPSULE PO SCH ×2 (09:00→20:55)
[2022-12-10] MEDS ORDERED: LISINOPRIL *2.5 MG* TAB PO SCH (09:00)
[2022-12-10] MEDS ORDERED: lisinopriL 5 MG TAB PO SCH (09:00)
[2022-12-10] MEDS: ENOXAPARIN 40MG/0.4ML SYRINGE (J1650 PER 10MG) SC SCH (09:27)
[2022-12-10] MEDS: ASPIRIN 81MG CHEW TABLET PO SCH (09:28)
[2022-12-10] MEDS: OMEPRAZOLE 20MG CAP PO SCH (09:28)
[2022-12-10] MEDS: GABAPENTIN 300 MG CAP PO SCH ×2 (09:28→20:55)
[2022-12-10] MEDS: OXcarbazepine 150 MG TAB PO SCH ×2 (09:28→20:55)
[2022-12-10] MEDS: INSULIN LISPRO (NovoLOG) PER UNIT SC SCH ×3 (12:57→20:36)
[2022-12-10] MEDS ORDERED: CLOPIDOGREL 75 MG TAB PO ONE (13:35)
[2022-12-10] MEDS: ATORVASTATIN 20 MG TAB PO SCH (20:55)
[2022-12-11] VITALS (9 sets, daily range): BP systolic 156–185; BP diastolic 70–96; TEMP 97.4–100.1; O2SAT 93–100
[2022-12-11] MEDS ORDERED: **hydrALAZINE** 10 MG TAB PO ONE (05:00)
[2022-12-11] MEDS: LEVOTHYROXINE 25MCG TABLET (0.025MG) PO SCH (05:41)
[2022-12-11] MEDS: INSULIN LISPRO (NovoLOG) PER UNIT SC SCH ×4 (09:03→20:36)
[2022-12-11] MEDS: DOCUSATE SODIUM 100MG CAPSULE PO SCH ×2 (09:04→20:36)
[2022-12-11] MEDS: OMEPRAZOLE 20MG CAP PO SCH (09:04)
[2022-12-11] MEDS: ENOXAPARIN 40MG/0.4ML SYRINGE (J1650 PER 10MG) SC SCH (09:04)
[2022-12-11] MEDS: ASPIRIN 81MG CHEW TABLET PO SCH (09:04)
[2022-12-11] MEDS: GABAPENTIN 300 MG CAP PO SCH ×2 (09:04→20:36)
[2022-12-11] MEDS: CLOPIDOGREL 75 MG TAB PO SCH (09:04)
[2022-12-11] MEDS: OXcarbazepine 150 MG TAB PO SCH ×2 (10:36→20:36)
[2022-12-11] MEDS: ACETAMINOPHEN TAB 650MG DOSE (2X325MG) PO PRN (20:30)
[2022-12-11] MEDS: ATORVASTATIN 20 MG TAB PO SCH (20:35)
[2022-12-12 03:02] VITALS: BP_SYST 163; BP_SYST 185; BP_DIAS 69; BP_DIAS 90; TEMP 98; O2SAT 95
[2022-12-12] MEDS: LEVOTHYROXINE 25MCG TABLET (0.025MG) PO SCH (05:28)
[2022-12-12 07:39] VITALS: BP 181/87; TEMP 97.3; O2SAT 90
[2022-12-12 07:57] VITALS: BP 178/110
[2022-12-12] MEDS: INSULIN LISPRO (NovoLOG) PER UNIT SC SCH ×4 (08:33→20:02)
[2022-12-12] MEDS: ENOXAPARIN 40MG/0.4ML SYRINGE (J1650 PER 10MG) SC SCH (08:33)
[2022-12-12] MEDS: OMEPRAZOLE 20MG CAP PO SCH (08:34)
[2022-12-12] MEDS: OXcarbazepine 150 MG TAB PO SCH ×2 (08:34→20:40)
[2022-12-12] MEDS: CLOPIDOGREL 75 MG TAB PO SCH (08:34)
[2022-12-12] MEDS: GABAPENTIN 300 MG CAP PO SCH ×2 (08:34→20:40)
[2022-12-12] MEDS: DOCUSATE SODIUM 100MG CAPSULE PO SCH ×2 (08:34→20:42)
[2022-12-12] MEDS: ASPIRIN 81MG CHEW TABLET PO SCH (08:34)
[2022-12-12 12:00] VITALS: BP 150/88; TEMP 98; O2SAT 95
[2022-12-12 18:27] VITALS: BP 152/80; TEMP 98.1; O2SAT 96
[2022-12-12 20:00] VITALS: BP 176/89; TEMP 98.1; O2SAT 96
[2022-12-12] MEDS: ATORVASTATIN 20 MG TAB PO SCH (20:40)
[2022-12-13] VITALS (10 sets, daily range): BP systolic 119–186; BP diastolic 74–90; TEMP 98.1–98.6; O2SAT 94–97
[2022-12-13] MEDS: LEVOTHYROXINE 25MCG TABLET (0.025MG) PO SCH (05:32)
[2022-12-13] MEDS: GABAPENTIN 300 MG CAP PO SCH ×2 (08:54→20:11)
[2022-12-13] MEDS: DOCUSATE SODIUM 100MG CAPSULE PO SCH ×2 (08:54→20:11)
[2022-12-13] MEDS: OMEPRAZOLE 20MG CAP PO SCH (08:54)
[2022-12-13] MEDS: CLOPIDOGREL 75 MG TAB PO SCH (08:54)
[2022-12-13] MEDS: INSULIN LISPRO (NovoLOG) PER UNIT SC SCH ×4 (08:54→19:32)
[2022-12-13] MEDS: ENOXAPARIN 40MG/0.4ML SYRINGE (J1650 PER 10MG) SC SCH (08:54)
[2022-12-13] MEDS: ASPIRIN 81MG CHEW TABLET PO SCH (08:55)
[2022-12-13] MEDS: OXcarbazepine 150 MG TAB PO SCH ×2 (08:55→20:09)
[2022-12-13] MEDS ORDERED: amLODIPine 5 MG TAB PO ONE (10:30)
[2022-12-13] MEDS ORDERED: NS 1,000 ML IV ONE ×2 (14:20→16:00)
[2022-12-13] MEDS: amLODIPine 5 MG TAB PO SCH (20:06)
[2022-12-13] MEDS: ATORVASTATIN 20 MG TAB PO SCH (20:11)
[2022-12-13] MEDS: ACETAMINOPHEN TAB 650MG DOSE (2X325MG) PO PRN (20:16)
[2022-12-14] VITALS (13 sets, daily range): BP systolic 131–170; BP diastolic 70–100; TEMP 97.7–98.4; O2SAT 93–97
[2022-12-14] MEDS: LEVOTHYROXINE 25MCG TABLET (0.025MG) PO SCH (05:30)
[2022-12-14] MEDS: ENOXAPARIN 40MG/0.4ML SYRINGE (J1650 PER 10MG) SC SCH (08:16)
[2022-12-14] MEDS: INSULIN LISPRO (NovoLOG) PER UNIT SC SCH ×4 (08:16→20:12)
[2022-12-14] MEDS: amLODIPine 5 MG TAB PO SCH (08:18)
[2022-12-14] MEDS: OXcarbazepine 150 MG TAB PO SCH ×2 (08:19→20:46)
[2022-12-14] MEDS: ASPIRIN 81MG CHEW TABLET PO SCH (08:19)
[2022-12-14] MEDS: DOCUSATE SODIUM 100MG CAPSULE PO SCH ×2 (08:19→20:46)
[2022-12-14] MEDS: CLOPIDOGREL 75 MG TAB PO SCH (08:19)
[2022-12-14] MEDS: OMEPRAZOLE 20MG CAP PO SCH (08:19)
[2022-12-14] MEDS: GABAPENTIN 300 MG CAP PO SCH ×2 (08:19→20:45)
[2022-12-14] MEDS ORDERED: NS 1,000 ML IV ONE (10:35)
[2022-12-14] MEDS: ATORVASTATIN 20 MG TAB PO SCH (20:46)
[2022-12-15] VITALS: BP_SYST 160; BP_SYST 170; BP_DIAS 90; BP_DIAS 96; TEMP 98.1; O2SAT 93
[2022-12-15 04:00] VITALS: BP 164/90; TEMP 97.5; O2SAT 95
[2022-12-15] MEDS: LEVOTHYROXINE 25MCG TABLET (0.025MG) PO SCH (06:30)
[2022-12-15] MEDS: OMEPRAZOLE 20MG CAP PO SCH (08:05)
[2022-12-15] MEDS: CLOPIDOGREL 75 MG TAB PO SCH (08:05)
[2022-12-15] MEDS: INSULIN LISPRO (NovoLOG) PER UNIT SC SCH ×4 (08:05→21:00)
[2022-12-15] MEDS: GABAPENTIN 300 MG CAP PO SCH ×2 (08:05→21:36)
[2022-12-15] MEDS: DOCUSATE SODIUM 100MG CAPSULE PO SCH ×2 (08:05→21:36)
[2022-12-15] MEDS: ENOXAPARIN 40MG/0.4ML SYRINGE (J1650 PER 10MG) SC SCH (08:05)
[2022-12-15] MEDS: OXcarbazepine 150 MG TAB PO SCH ×2 (08:05→21:36)
[2022-12-15] MEDS: ASPIRIN 81MG CHEW TABLET PO SCH (08:05)
[2022-12-15 10:00] VITALS: BP 138/100; TEMP 97.9; O2SAT 93
[2022-12-15] MEDS: LISINOPRIL *2.5 MG* TAB PO SCH (11:58)
[2022-12-15 14:00] VITALS: BP 133/80; TEMP 97.9; O2SAT 96
[2022-12-15 18:00] VITALS: BP 138/82; TEMP 97.9; O2SAT 95
[2022-12-15 20:00] VITALS: BP 160/100; TEMP 98.8; O2SAT 95
[2022-12-15] MEDS: ATORVASTATIN 20 MG TAB PO SCH (21:37)
[2022-12-16 05:19] VITALS: BP 139/86; TEMP 97.7; O2SAT 95
[2022-12-16] MEDS: LEVOTHYROXINE 25MCG TABLET (0.025MG) PO SCH (05:26)
[2022-12-16] MEDS: OXcarbazepine 150 MG TAB PO SCH ×2 (09:27→20:06)
[2022-12-16] MEDS: INSULIN LISPRO (NovoLOG) PER UNIT SC SCH ×4 (09:28→20:07)
[2022-12-16] MEDS: DOCUSATE SODIUM 100MG CAPSULE PO SCH ×2 (09:28→20:05)
[2022-12-16] MEDS: ENOXAPARIN 40MG/0.4ML SYRINGE (J1650 PER 10MG) SC SCH (09:28)
[2022-12-16] MEDS: GABAPENTIN 300 MG CAP PO SCH ×2 (09:29→20:06)
[2022-12-16] MEDS: CLOPIDOGREL 75 MG TAB PO SCH (09:29)
[2022-12-16] MEDS: OMEPRAZOLE 20MG CAP PO SCH (09:29)
[2022-12-16] MEDS: ASPIRIN 81MG CHEW TABLET PO SCH (09:29)
[2022-12-16] MEDS: LISINOPRIL *2.5 MG* TAB PO SCH (09:33)
[2022-12-16] MEDS: ATORVASTATIN 20 MG TAB PO SCH (20:05)
[2022-12-17 05:00] VITALS: BP 127/65; TEMP 97.4; O2SAT 96
[2022-12-17] MEDS: LEVOTHYROXINE 25MCG TABLET (0.025MG) PO SCH (06:04)
[2022-12-17] MEDS: INSULIN LISPRO (NovoLOG) PER UNIT SC SCH ×4 (08:43→20:19)
[2022-12-17] MEDS: LISINOPRIL *2.5 MG* TAB PO SCH (08:43)
[2022-12-17] MEDS: CLOPIDOGREL 75 MG TAB PO SCH (08:44)
[2022-12-17] MEDS: ENOXAPARIN 40MG/0.4ML SYRINGE (J1650 PER 10MG) SC SCH (08:44)
[2022-12-17] MEDS: OMEPRAZOLE 20MG CAP PO SCH (08:44)
[2022-12-17] MEDS: GABAPENTIN 300 MG CAP PO SCH ×2 (08:44→20:22)
[2022-12-17] MEDS: DOCUSATE SODIUM 100MG CAPSULE PO SCH ×2 (08:44→20:23)
[2022-12-17] MEDS: OXcarbazepine 150 MG TAB PO SCH ×2 (08:44→20:22)
[2022-12-17] MEDS: ASPIRIN 81MG CHEW TABLET PO SCH (08:44)
[2022-12-17] MEDS: ATORVASTATIN 20 MG TAB PO SCH (20:23)
[2022-12-18 05:05] VITALS: BP 128/80; TEMP 98.6; O2SAT 97
[2022-12-18] MEDS: LEVOTHYROXINE 25MCG TABLET (0.025MG) PO SCH (05:43)
[2022-12-18 08:15] VITALS: BP 145/82
[2022-12-18] MEDS: ASPIRIN 81MG CHEW TABLET PO SCH (08:15)
[2022-12-18] MEDS: CLOPIDOGREL 75 MG TAB PO SCH (08:15)
[2022-12-18] MEDS: GABAPENTIN 300 MG CAP PO SCH (08:15)
[2022-12-18] MEDS: DOCUSATE SODIUM 100MG CAPSULE PO SCH (08:15)
[2022-12-18] MEDS: OXcarbazepine 150 MG TAB PO SCH (08:15)
[2022-12-18] MEDS: LISINOPRIL *2.5 MG* TAB PO SCH (08:15)
[2022-12-18] MEDS: INSULIN LISPRO (NovoLOG) PER UNIT SC SCH (08:15)
[2022-12-18] MEDS: OMEPRAZOLE 20MG CAP PO SCH (08:15)
[2022-12-18] MEDS: ENOXAPARIN 40MG/0.4ML SYRINGE (J1650 PER 10MG) SC SCH (08:16)
[2022-12-18] MEDS ORDERED: CLOP75TA2 PO (10:02)
[2022-12-18] MEDS ORDERED: ASPI81CH8 PO (10:02)
[2022-12-18] MEDS ORDERED: ATOR40TA75 PO (10:02)
== END 2022-12-18 11:50 | DRG 65 ==
LOC: M ED 16:23 → M ED INP 23:53 → M PCU 12-10 01:09 → M MSPAV 12-12 17:54
PROVIDERS: ADMIT Family Medicine; ATTEND Family Medicine
DX: I63.9 Cerebral infarction, unspecified (principal); I69.351 Hemiplegia and hemiparesis following cerebral infarction affecting right dominant side; E03.9 Hypothyroidism, unspecified; I10 Essential (primary) hypertension; Z79.899 Other long term (current) drug therapy; Z79.82 Long term (current) use of aspirin; E11.9 Type 2 diabetes mellitus without complications; E78.5 Hyperlipidemia, unspecified; M06.9 Rheumatoid arthritis, unspecified; Z85.46 Personal history of malignant neoplasm of prostate